=== PATIENT | female | born 1995 ===

== ENCOUNTER 2018-11-11 22:16 | Observation (INO) | payer SELFPAY ==
[2018-11-11 22:24] VITALS: BMI 24.5
[2018-11-11] MEDS ORDERED: Sodium Chloride 0.9% 1,000 ML IV STA (22:26)
[2018-11-11 22:59] LABS: BASO # 0.02 {null, K/mm3} (0.0-2.0); BASO % 0.1 % (0.0-3.0); EOS % 0.1 % (1.5-5.0); HEMOGLOBIN 13.5 g/dL (12.0-16.0); LYMPH # 1.7 (1.2-3.4); LYMPH % 10.6 % (22.0-35.0); MEAN CORPUSCULAR HEMOGLOBIN 27.4 pg (25.0-35.0); MEAN CORPUSCULAR HGB CONC 32.6 g/dl (31.0-37.0); MEAN PLATELET VOLUME 10.8 fl (7.0-11.0); MONO % 6.3 % (1.0-6.0); RBC 4.93 {null, 10^6/uL} (3.5-6.1); RED CELL DISTRIBUTION WIDTH 15.3 % (11.5-14.5); WHITE BLOOD COUNT 16.1 {null, 10^3/uL} (4.5-11.0)
[2018-11-11 23:03] LABS: INR 1.4; PARTIAL THROMBOPLASTIN TIME 32.4 Seconds (26.9-38.3); PROTHROMBIN TIME 15.5 SECONDS (9.4-12.5)
[2018-11-11 23:05] LABS: ALB/GLOB RATIO 1.2 (1.1-1.8); ALBUMIN 4.7 g/dL (3.0-4.8); ALT/SGPT 21 U/L (7-56); AST/SGOT 28 U/L (14-36); BLOOD UREA NITROGEN 12 mg/dL (7-21); CALCIUM 9.7 mg/dL (8.4-10.5); GFR NON-AFRICAN AMERICAN > 60
[2018-11-11 23:06] LABS: HCG,QUALITATIVE URINE POSITIVE (NEGATIVE); URINE APPEARANCE CLEAR (CLEAR); URINE BILIRUBIN NEGATIVE (NEGATIVE); URINE BLOOD NEGATIVE (NEGATIVE); URINE COLOR YELLOW (YELLOW); URINE GLUCOSE (UA) NEGATIVE (NEGATIVE); URINE LEUKOCYTE ESTERASE NEGATIVE Leu/uL (NEGATIVE); URINE PROTEIN 30 mg/dL (<30 mg/dL); URINE UROBILINOGEN 0.2 E.U./dL (<1 E.U./dL)
[2018-11-11 23:08] LABS: URINE EPITHELIAL CELLS 0 - 2 /hpf (0-5); URINE RBC 0 - 2 /hpf (0-2); URINE WBC 0 - 2 /hpf (0-6)
--- NOTE | 2018-11-12 00:36 | ED PDOC ---
Arrival/HPI - General Chief Complaint: GI Problem Time Seen by Provider: 11/11/18 22:20 Historian: Patient - History of Present Illness Narrative History of Present Illness (Text): 11/12/18 01:45 23 y/o A0 female 7 weeks by LMP with no significant PMH presents to the ED c/o vomiting x 1 day. Admits to 15-20 episodes of nonbilious, nonbloody emesis today. Associated intermittent lightheadedness. Abdominal pain is crampy, burning, and generalized. States she had hyperemesis syndrome with her first . LMP 09/20/18. Denies fever, chills, back pain, urinary symptoms, headache, dizziness, vaginal bleeding or discharge, syncope, or any other associated complaints. Past Medical History - Provider Review Nursing Documentation Reviewed: Yes - Infectious Disease Hx of Infectious Diseases: None - Psychiatric Hx Substance Use: No - Anesthesia Hx Anesthesia: No Family/Social History - Physician Review Nursing Documentation Reviewed: Yes Family/Social History: No Known Family HX Smoking Status: Never Smoked Hx Alcohol Use: No Hx Substance Use: No Allergies/Home Meds Allergies/Adverse Reactions: Allergies No Known Allergies Allergy (Verified 11/11/18 22:24) Review of Systems - Review of Systems Constitutional: Normal. absent: Fevers Eyes: Normal. absent: Vision Changes ENT: Normal. absent: Sore Throat, Sinus Congestion Respiratory: Normal. absent: SOB, Cough Cardiovascular: Normal. absent: Chest Pain, Palpitations Gastrointestinal: Abdominal Pain, Nausea, Vomiting Genitourinary Female: Normal. absent: Dysuria, Frequency, Vaginal Bleeding, Vaginal Discharge Musculoskeletal: Normal. absent: Back Pain, Neck Pain Skin: Normal. absent: Rash Neurological: Dizziness. absent: Headache Physical Exam Vital Signs Reviewed: Yes Vital Signs Temp Pulse Resp BP Pulse Ox 11/11/18 22:25 98 F 84 18 108/59 L 99 Temperature: Afebrile Blood Pressure: Hypotensive Pulse: Regular Respiratory Rate: Normal Appearance: Positive for: Well-Appearing, Non-Toxic, Comfortable Pain Distress: None Mental Status: Positive for: Alert and Oriented X 3 - Systems Exam Head: Present: Atraumatic, Normocephalic Pupils: Present: PERRL Extroacular Muscles: Present: EOMI Conjunctiva: Present: Normal Mouth: Present: Moist Mucous Membranes Neck: Present: Normal Range of Motion. No: Meningeal Signs, MIDLINE TENDERNESS Respiratory/Chest: Present: Clear to Auscultation, Good Air Exchange. No: Respiratory Distress, Accessory Muscle Use Cardiovascular: Present: Regular Rate and Rhythm, Normal S1, S2, Peripheal Pulses Present Abdomen: Present: Tenderness (generalized, mild), Normal Bowel Sounds, Other (NO isolated RLQ tenderness). No: Distention, Peritoneal Signs Genitourinary/Pelvic Exam: Present: Normal External Genitalia, Cervical os Closed. No: Vaginal Discharge, Vaginal Bleeding, Vaginal Lesions, Adenexal Tenderness, Cervical Motion Tendernes Back: Present: Normal Inspection. No: CVA Tenderness Upper Extremity: Present: Normal Inspection, Normal ROM, NORMAL PULSES, Neurovascularly Intact, Capillary Refill < 2s. No: Cyanosis, Edema, Temperature Abnormalties Lower Extremity: Present: Normal Inspection, NORMAL PULSES, Normal ROM, Neurovascularly Intact, Capillary Refill < 2 s. No: Edema, Temperature Abnormalties Neurological: Present: GCS=15, CN II-XII Intact, Speech Normal, Motor Func Gross ly Intact, Normal Sensory Function, Gait Normal Skin: Present: Warm, Dry, Normal Color. No: Rashes Psychiatric: Present: Alert, Oriented x 3, Normal Insight, Normal Concentration, Normal Affect, Normal Mood Medical Decision Making ED Course and Treatment: 11/12/18 01:33 Initial Plan: * CBC, CMP * Coags * Lipase * Hcg quant * Type and Screen * UA * POC preg * IVF * Pepcid * Reglan Bloodwork reviewed, remarkable for leukocytosis. Will repeat CBC after fluids. Transvaginal ultrasound shows single live IUP at 7 weeks and right ovarian cyst. Patient reports complete resolution of symptoms with medication. 11/12/18 02:02 CBC shows increased leukocytosis. Pt continues to c/o nausea. Will keep for observation. Patient accepted to hospitalist service by Dr. Murguia. Pt updated with change in disposition. Vitals stable at this time. - Lab Interpretations Lab Results: PT 15.5 SECONDS (9.4-12.5) H 11/11/18 22:45 INR 1.40 11/11/18 22:45 APTT 32.4 Seconds (26.9-38.3) 11/11/18 22:45 Total Bilirubin 0.5 mg/dL (0.2-1.3) 11/11/18 22:45 AST 28 U/L (14-36) 11/11/18 22:45 ALT 21 U/L (7-56) 11/11/18 22:45 Alkaline Phosphatase 64 U/L (38-126) 11/11/18 22:45 Total Protein 8.6 g/dL (5.8-8.3) H 11/11/18 22:45 Albumin 4.7 g/dL (3.0-4.8) 11/11/18 22:45 Globulin 3.9 gm/dL 11/11/18 22:45 Albumin/Globulin Ratio 1.2 (1.1-1.8) 11/11/18 22:45 Lipase 48 U/L (23-300) 11/11/18 22:45 Urine Color Yellow (YELLOW) 11/11/18 22:45 Urine Appearance Clear (CLEAR) 11/11/18 22:45 Urine pH 6.0 (4.7-8.0) 11/11/18 22:45 Ur Specific [place] >= 1.030 (1.005-1.035) 11/11/18 22:45 Urine Protein 30 mg/dL (<30 mg/dL) H 11/11/18 22:45 Urine Glucose (UA) Negative mg/dL (NEGATIVE) 11/11/18 22:45 Urine Ketones >=80 mg/dL (NEGATIVE) 11/11/18 22:45 Urine Blood Negative (NEGATIVE) 11/11/18 22:45 Urine Nitrate Negative (NEGATIVE) 11/11/18 22:45 Urine Bilirubin Negative (NEGATIVE) 11/11/18 22:45 Urine Urobilinogen 0.2 E.U./dL (<1 E.U./dL) 11/11/18 22:45 Ur Leukocyte Esterase Negative Radha/uL (NEGATIVE) 11/11/18 22:45 Urine RBC 0 - 2 /hpf (0-2) 11/11/18 22:45 Urine WBC 0 - 2 /hpf (0-6) 11/11/18 22:45 Ur Epithelial Cells 0 - 2 /hpf (0-5) 11/11/18 22:45 Urine Other Mucus /hpf 11/11/18 22:45 Urine HCG, Qual Positive (NEGATIVE) 11/11/18 22:45 Beta HCG, Quant 677871.00 mIU/mL (0-6.15) H 11/11/18 22:45 Urine HCG, Qual Positive (NEGATIVE) 11/11/18 22:45 11/12/18 01:05 11/11/18 22:45 Lab Results 11/12/18 01:05: WBC 16.4 H, RBC 4.38, Hgb 11.8 L, Hct 36.7, MCV 83.8, MCH 26.9, MCHC 32.2, RDW 15.1 H, Plt Count 324, MPV 10.5, Neut % (Auto) 86.9 H, Lymph % (A uto) 7.1 L, [place] % (Auto) 5.8, Eos % (Auto) 0.1 L, Baso % (Auto) 0.1, Lymph # (Auto) 1.2, [place] # (Auto) 1.0 H, Eos # (Auto) 0.0, Baso # (Auto) 0.02, Absolute Neuts (auto) 14.24 H 11/11/18 22:45: Lipase 48 11/11/18 22:45: Blood Type A POSITIVE, Antibody Screen Negative, BBK History Checked No verified bt 11/11/18 22:45: Urine Color Yellow, Urine Appearance Clear, Urine pH 6.0, Ur Specific [place] >= 1.030, Urine Protein 30 H, Urine Glucose (UA) Negative, Urine Ketones >=80, Urine Blood Negative, Urine Nitrate Negative, Urine Bilirubi n Negative, Urine Urobilinogen 0.2, Ur Leukocyte Esterase Negative, Urine RBC 0 - 2, Urine WBC 0 - 2, Ur Epithelial Cells 0 - 2, Urine Other Mucus, Urine HCG, Qual Positive 11/11/18 22:45: Beta HCG, Quant 901637.00 H 11/11/18 22:45: Sodium 138, Potassium 3.9, Chloride 99, Carbon Dioxide 26, Anion Gap 17, BUN 12, Creatinine 0.5 L, Est GFR ( Amer) > 60, Est GFR (Non-Af Amer) > 60, Random Glucose 90, Calcium 9.7, Total Bilirubin 0.5, AST 28, ALT 21, Alkaline Phosphatase 64, Total Protein 8.6 H, Albumin 4.7, Globulin 3.9, Albumin/Globulin Ratio 1.2 11/11/18 22:45: PT 15.5 H, INR 1.40, APTT 32.4 11/11/18 22:45: WBC 16.1 H, RBC 4.93, Hgb 13.5, Hct 41.4, MCV 84.0, MCH 27.4, MCHC 32.6, RDW 15.3 H, Plt Count 368, MPV 10.8, Neut % (Auto) 82.9 H, Lymph % (Auto) 10.6 L, [place] % (Auto) 6.3 H, Eos % (Auto) 0.1 L, Baso % (Auto) 0.1, Lymph # (Auto) 1.7, [place] # (Auto) 1.0 H, Eos # (Auto) 0.0, Baso # (Auto) 0.02, Absolute Neuts (auto) 13.35 H I have reviewed the lab results: Yes - RAD Interpretation Narrative RAD Interpretations (Text): Transvaginal US: GESTATION: Early single living IUP estimated to be 7 weeks and 2 days in age, +/- 4 days. cardiac rate documented at 154 BPM. UTERUS: Unremarkable. No myometrial mass. CERVIX: Closed. Unremarkable. OVARIES: A 1.4 x 1.2 x 1.5 cm complex cyst noted. No suspicious mass. FREE FLUID: No free fluid. IMPRESSION: Single living intrauterine . No acute abnormality. 1.4 x 1.2 cm complex right ovarian cyst. The EDMUND is 06/28/2019. Electronically signed on Nov 12, 2018 12:08:47 AM EDT by: Rosalba Katz M.D., Certified by ABR, MSK, Neuroradiology Radiology Orders: 11/11/18 22:29 OB TRANSVAGINAL [US] Stat Integrated Pest Management Technician: Radiologist - Medication Orders Current Medication Orders: Discontinued Medications Famotidine (Pepcid) 20 mg IVP STAT STA Stop: 11/11/18 22:28 Last Admin: 11/11/18 23:00 Dose: 20 mg IVP Administration Document 11/11/18 23:00 CNR (Rec: 11/11/18 23:00 CNR [id number]) Charges for Administration # of IVP Administrations 1 Sodium Chloride (Sodium Chloride 0.9%) 1,000 mls @ 999 mls/hr IV .Q1H1M STA Stop: 11/11/18 23:26 Last Admin: 11/11/18 22:56 Dose: 999 mls/hr eMAR Start Stop Document 11/11/18 22:56 CNR (Rec: 11/11/18 22:56 CNR [id number]) Intravenous Solution Start Date 11/11/18 Start Time 22:56 End Date 11/11/18 End time 23:56 Total Infusion Time 60 Metoclopramide HCl (Reglan) 10 mg IVP STAT STA Stop: 11/11/18 22:29 Last Admin: 11/11/18 22:55 Dose: 10 mg IVP Administration Document 11/11/18 22:55 CNR (Rec: 11/11/18 22:56 CNR [id number]) Charges for Administration # of IVP Administrations 1 Disposition/Present on Arrival - Present on Arrival Any Indicators Present on Arrival: No History of DVT/PE: No History of Uncontrolled Diabetes: No Urinary Catheter: No History of Decub. Ulcer: No History Surgical Site Infection Following: None - Disposition Have Diagnosis and Disposition been Completed?: Yes Diagnosis: Hyperemesis, Leukocytosis, Disposition: HOSPITALIZED Disposition Time: 01:58 Patient Plan: Admission Patient Problems: Current Active Problems Problem Status Onset Hyperemesis Acute Leukocytosis Acute Acute Condition: STABLE Forms: [employer] (Setswana), WORK NOTE
[2018-11-12 01:30] LABS: BASO # 0.02 {null, K/mm3} (0.0-2.0); BASO % 0.1 % (0.0-3.0); EOS % 0.1 % (1.5-5.0); HEMOGLOBIN 11.8 g/dL (12.0-16.0); LYMPH # 1.2 (1.2-3.4); LYMPH % 7.1 % (22.0-35.0); MEAN CELL VOLUME 83.8 fl (80.0-105.0); MEAN CORPUSCULAR HEMOGLOBIN 26.9 pg (25.0-35.0); MEAN CORPUSCULAR HGB CONC 32.2 g/dl (31.0-37.0); MEAN PLATELET VOLUME 10.5 fl (7.0-11.0); MONO % 5.8 % (1.0-6.0); RBC 4.38 {null, 10^6/uL} (3.5-6.1); RED CELL DISTRIBUTION WIDTH 15.1 % (11.5-14.5); WHITE BLOOD COUNT 16.4 {null, 10^3/uL} (4.5-11.0)
--- NOTE | 2018-11-12 02:30 | CP.PCM.HP ---
<Byron Riley - Last Filed: 11/12/18 03:46> History of Present Illness - History of Present Illness History of Present Illness: PGY-1 Medicine H&P for Dr. Murguia CC: Nausea and vomiting HPI: Patient is a 23 year old female at 7 weeks by LMP with a past medical history of hyperemesis gravidum presenting with vomiting for 1 day. She admits to 15-20 episodes of nonbilious, nonbloody emesis today. She also complains of abdominal pain and sore throat that she states from vomiting too many times today. She denies sick contacts at home or recent travels. Patient states that one of her coworker is sick with a cough. She denies cough, nasal congestion, or recent illness. She is currently sexually active with one partner and denies using protection. She admits to mild dysuria that she states secondary from not drinking enough water. She denies urinary frequency, hematuria, dyspareunia, malodorous urine, history of STI's, vaginal bleeding or discharge. She further denies headaches, shortness of breath, chest pain, abdominal pain, or diarrhea. Patient states that she just found out recently that she is . Patient has not seen an OB doctor yet but has an appointment next week to see one. 12-point ROS reviewed and negative, except mentioned in HPI. PMHx: Hyperemesis gravidum PSHx: 1 X Allergies: NKDA OBGYN Hx: . LMP was 09/20/18. Patient is sexually active with one partner. Does not use protection. She denies history of any STI's. Social Hx: denies tobacco alcohol, or drug use. Patient works in [employer]. Family Hx: denies. Medications: none PMD: Primary care clinic on [address] [place] [address]. 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 Present on Admission - Present on Admission Any Indicators Present on Admission: No History of DVT/PE: No History of Uncontrolled Diabetes: No Urinary Catheter: No Decubitus Ulcer Present: No Past Patient History - Infectious Disease Hx of Infectious Diseases: None - Past Social History Smoking Status: Never Smoked - PSYCHIATRIC Hx Substance Use: No - SURGICAL HISTORY Hx Surgeries: No - ANESTHESIA Hx Anesthesia: No Meds Allergies/Adverse Reactions: Allergies Allergy/AdvReac Type Severity Reaction Status Date / Time No Known Allergies Allergy Verified 11/11/18 22:24 Physical Exam - Constitutional Appears: Well, Non-toxic, No Acute Distress - Head Exam Head Exam: ATRAUMATIC, NORMAL INSPECTION - Eye Exam Eye Exam: EOMI, Normal appearance Pupil Exam: NORMAL ACCOMODATION - ENT Exam ENT Exam: Mucous Membranes Dry - Neck Exam Neck exam: Positive for: Normal Inspection - Respiratory Exam Respiratory Exam: Clear to Auscultation Bilateral, NORMAL BREATHING PATTERN. absent: Rales, Rhonchi, Wheezes, Respiratory Distress - Cardiovascular Exam Cardiovascular Exam: REGULAR RHYTHM, +S1, +S2. absent: Bradycardia, Tachycardia, Gallop, Rubs, Systolic Murmur - GI/Abdominal Exam GI & Abdominal Exam: Normal Bowel Sounds, Soft. absent: Distended, Firm, Guarding, Tenderness - Extremities Exam Extremities exam: Positive for: normal inspection. Negative for: calf ten derness, pedal edema - Back Exam Back exam: NORMAL INSPECTION. absent: CVA tenderness (L), CVA tenderness (R), paraspinal tenderness, rash noted, vertebral tenderness - Neurological Exam Neurological exam: Alert, CN II-XII Intact, Oriented x3 - Psychiatric Exam Psychiatric exam: Normal Affect, Normal Mood - Skin Skin Exam: Dry, Intact, Normal Color, Warm Results - Vital Signs Recent Vital Signs: Last Vital Signs Temp 98 F 11/11/18 22:25 Pulse 84 11/11/18 22:25 Resp 18 11/11/18 22:25 BP 108/59 L 11/11/18 22:25 Pulse Ox 99 11/11/18 22:25 - Labs Result Diagrams: 11/12/18 01:05 11/11/18 22:45 Labs: Laboratory Results - last 24 hr 11/11/18 11/11/18 11/11/18 22:45 22:45 22:45 WBC 16.1 H RBC 4.93 Hgb 13.5 Hct 41.4 MCV 84.0 MCH 27.4 MCHC 32.6 RDW 15.3 H Plt Count 368 MPV 10.8 Neut % (Auto) 82.9 H Lymph % (Auto) 10.6 L [place] % (Auto) 6.3 H Eos % (Auto) 0.1 L Baso % (Auto) 0.1 Lymph # (Auto) 1.7 [place] # (Auto) 1.0 H Eos # (Auto) 0.0 Baso # (Auto) 0.02 Absolute Neuts (auto) 13.35 H PT 15.5 H INR 1.40 APTT 32.4 Sodium 138 Potassium 3.9 Chloride 99 Carbon Dioxide 26 Anion Gap 17 BUN 12 Creatinine 0.5 L Est GFR ( Amer) > 60 Est GFR (Non-Af Amer) > 60 Random Glucose 90 Calcium 9.7 Total Bilirubin 0.5 AST 28 ALT 21 Alkaline Phosphatase 64 Total Protein 8.6 H Albumin 4.7 Globulin 3.9 Albumin/Globulin Ratio 1.2 Lipase Beta HCG, Quant Urine Color Urine Appearance Urine pH Ur Specific [place] Urine Protein Urine Glucose (UA) Urine Ketones Urine Blood Urine Nitrate Urine Bilirubin Urine Urobilinogen Ur Leukocyte Esterase Urine RBC Urine WBC Ur Epithelial Cells Urine Other Urine HCG, Qual Blood Type Antibody Screen BBK History Checked 11/11/18 11/11/18 11/11/18 22:45 22:45 22:45 WBC RBC Hgb Hct MCV MCH MCHC RDW Plt Count MPV Neut % (Auto) Lymph % (Auto) [place] % (Auto) Eos % (Auto) Baso % (Auto) Lymph # (Auto) [place] # (Auto) Eos # (Auto) Baso # (Auto) Absolute Neuts (auto) PT INR APTT Sodium Potassium Chloride Carbon Dioxide Anion Gap BUN Creatinine Est GFR ( Amer) Est GFR (Non-Af Amer) Random Glucose Calcium Total Bilirubin AST ALT Alkaline Phosphatase Total Protein Albumin Globulin Albumin/Globulin Ratio Lipase Beta HCG, Quant 562803.00 H Urine Color Yellow Urine Appearance Clear Urine pH 6.0 Ur Specific [place] >= 1.030 Urine Protein 30 H Urine Glucose (UA) Negative Urine Ketones >=80 Urine Blood Negative Urine Nitrate Negative Urine Bilirubin Negative Urine Urobilinogen 0.2 Ur Leukocyte Esterase Negative Urine RBC 0 - 2 Urine WBC 0 - 2 Ur Epithelial Cells 0 - 2 Urine Other Mucus Urine HCG, Qual Positive Blood Type A POSITIVE Antibody Screen Negative BBK History Checked No verified bt 11/11/18 11/12/18 22:45 01:05 WBC 16.4 H RBC 4.38 Hgb 11.8 L Hct 36.7 MCV 83.8 MCH 26.9 MCHC 32.2 RDW 15.1 H Plt Count 324 MPV 10.5 Neut % (Auto) 86.9 H Lymph % (Auto) 7.1 L [place] % (Auto) 5.8 Eos % (Auto) 0.1 L Baso % (Auto) 0.1 Lymph # (Auto) 1.2 [place] # (Auto) 1.0 H Eos # (Auto) 0.0 Baso # (Auto) 0.02 Absolute Neuts (auto) 14.24 H PT INR APTT Sodium Potassium Chloride Carbon Dioxide Anion Gap BUN Creatinine Est GFR ( Amer) Est GFR (Non-Af Amer) Random Glucose Calcium Total Bilirubin AST ALT Alkaline Phosphatase Total Protein Albumin Globulin Albumin/Globulin Ratio Lipase 48 Beta HCG, Quant Urine Color Urine Appearance Urine pH Ur Specific [place] Urine Protein Urine Glucose (UA) Urine Ketones Urine Blood Urine Nitrate Urine Bilirubin Urine Urobilinogen Ur Leukocyte Esterase Urine RBC Urine WBC Ur Epithelial Cells Urine Other Urine HCG, Qual Blood Type Antibody Screen BBK History Checked Assessment & Plan - Assessment and Plan (Free Text) Assessment: Patient is a 23 year old female at 7 weeks by LMP with a past medical history of hyperemesis gravidum presenting with vomiting for 1 day. Patient was found to have leukocytosis. Plan: Leukocytosis - Patient is afebrile - Transvaginal ultrasound shows single live IUP at 7 weeks and right ovarian cyst - UA: negative for nitrates, LE, WBC, bacteria - Follow up CBC, procalcitonin - Urine cultures ordered Hyperemesis gravidum, resolved - Reglan 10mg IVP Q6 PRN - NS @100 mL/hr Prophylaxis: - DVT: SCD's - GI: not indicated Case discussed with attending, Dr. Murguia. Byron Riley, PGY-1 <Abbe Murguia - Last Filed: 11/12/18 06:14> Results - Vital Signs Recent Vital Signs: Last Vital Signs Temp 98.5 F 11/12/18 04:08 Pulse 73 11/12/18 04:08 Resp 20 11/12/18 04:08 BP 98/59 L 11/12/18 04:08 Pulse Ox 100 11/12/18 04:08 - Labs Result Diagrams: 11/12/18 01:05 11/11/18 22:45 Labs: Laboratory Results - last 24 hr 11/11/18 11/11/18 11/11/18 22:45 22:45 22:45 WBC 16.1 H RBC 4.93 Hgb 13.5 Hct 41.4 MCV 84.0 MCH 27.4 MCHC 32.6 RDW 15.3 H Plt Count 368 MPV 10.8 Neut % (Auto) 82.9 H Lymph % (Auto) 10.6 L [place] % (Auto) 6.3 H Eos % (Auto) 0.1 L Baso % (Auto) 0.1 Lymph # (Auto) 1.7 [place] # (Auto) 1.0 H Eos # (Auto) 0.0 Baso # (Auto) 0.02 Absolute Neuts (auto) 13.35 H PT 15.5 H INR 1.40 APTT 32.4 Sodium 138 Potassium 3.9 Chloride 99 Carbon Dioxide 26 Anion Gap 17 BUN 12 Creatinine 0.5 L Est GFR ( Amer) > 60 Est GFR (Non-Af Amer) > 60 Random Glucose 90 Calcium 9.7 Total Bilirubin 0.5 AST 28 ALT 21 Alkaline Phosphatase 64 Total Protein 8.6 H Albumin 4.7 Globulin 3.9 Albumin/Globulin Ratio 1.2 Lipase Beta HCG, Quant Urine Color Urine Appearance Urine pH Ur Specific [place] Urine Protein Urine Glucose (UA) Urine Ketones Urine Blood Urine Nitrate Urine Bilirubin Urine Urobilinogen Ur Leukocyte Esterase Urine RBC Urine WBC Ur Epithelial Cells Urine Other Urine HCG, Qual Blood Type Antibody Screen BBK History Checked 11/11/18 11/11/18 11/11/18 22:45 22:45 22:45 WBC RBC Hgb Hct MCV MCH MCHC RDW Plt Count MPV Neut % (Auto) Lymph % (Auto) [place] % (Auto) Eos % (Auto) Baso % (Auto) Lymph # (Auto) [place] # (Auto) Eos # (Auto) Baso # (Auto) Absolute Neuts (auto) PT INR APTT Sodium Potassium Chloride Carbon Dioxide Anion Gap BUN Creatinine Est GFR ( Amer) Est GFR (Non-Af Amer) Random Glucose Calcium Total Bilirubin AST ALT Alkaline Phosphatase Total Protein Albumin Globulin Albumin/Globulin Ratio Lipase Beta HCG, Quant 959526.00 H Urine Color Yellow Urine Appearance Clear Urine pH 6.0 Ur Specific [place] >= 1.030 Urine Protein 30 H Urine Glucose (UA) Negative Urine Ketones >=80 Urine Blood Negative Urine Nitrate Negative Urine Bilirubin Negative Urine Urobilinogen 0.2 Ur Leukocyte Esterase Negative Urine RBC 0 - 2 Urine WBC 0 - 2 Ur Epithelial Cells 0 - 2 Urine Other Mucus Urine HCG, Qual Positive Blood Type A POSITIVE Antibody Screen Negative BBK History Checked No verified bt 11/11/18 11/12/18 22:45 01:05 WBC 16.4 H RBC 4.38 Hgb 11.8 L Hct 36.7 MCV 83.8 MCH 26.9 MCHC 32.2 RDW 15.1 H Plt Count 324 MPV 10.5 Neut % (Auto) 86.9 H Lymph % (Auto) 7.1 L [place] % (Auto) 5.8 Eos % (Auto) 0.1 L Baso % (Auto) 0.1 Lymph # (Auto) 1.2 [place] # (Auto) 1.0 H Eos # (Auto) 0.0 Baso # (Auto) 0.02 Absolute Neuts (auto) 14.24 H PT INR APTT Sodium Potassium Chloride Carbon Dioxide Anion Gap BUN Creatinine Est GFR ( Amer) Est GFR (Non-Af Amer) Random Glucose Calcium Total Bilirubin AST ALT Alkaline Phosphatase Total Protein Albumin Globulin Albumin/Globulin Ratio Lipase 48 Beta HCG, Quant Urine Color Urine Appearance Urine pH Ur Specific [place] Urine Protein Urine Glucose (UA) Urine Ketones Urine Blood Urine Nitrate Urine Bilirubin Urine Urobilinogen Ur Leukocyte Esterase Urine RBC Urine WBC Ur Epithelial Cells Urine Other Urine HCG, Qual Blood Type Antibody Screen BBK History Checked Attending/Attestation - Attestation I have personally seen and examined this patient.: Yes I have fully participated in the care of the patient.: Yes I have reviewed all pertinent clinical information: Yes Notes (Text): 11/12/18 06:14 Patient was seen when she was in the ER . Medical record was reviewed. Agree with history , physical examination, assessment and plan.
[2018-11-12] MEDS ORDERED: Sodium Chloride 0.9% 1,000 ML IV SCH (03:30)
[2018-11-12] MEDS ORDERED: Pneumococcal 23-Valent Vaccine IM ONE (03:36)
[2018-11-12 04:08] VITALS: O2SAT 100
[2018-11-12 07:59] LABS: BASO # 0.02 {null, K/mm3} (0.0-2.0); BASO % 0.1 % (0.0-3.0); EOS % 0.1 % (1.5-5.0); LYMPH # 1.9 (1.2-3.4); LYMPH % 13.7 % (22.0-35.0); MEAN CELL VOLUME 84.2 fl (80.0-105.0); MEAN CORPUSCULAR HEMOGLOBIN 26.4 pg (25.0-35.0); MEAN CORPUSCULAR HGB CONC 31.3 g/dl (31.0-37.0); MEAN PLATELET VOLUME 10.8 fl (7.0-11.0); MONO # 1.2 (0.1-0.6); MONO % 8.4 % (1.0-6.0); RBC 4.17 {null, 10^6/uL} (3.5-6.1); RED CELL DISTRIBUTION WIDTH 15.3 % (11.5-14.5); WHITE BLOOD COUNT 14.1 {null, 10^3/uL} (4.5-11.0)
[2018-11-12 08:25] VITALS: BP 103/66; PULSE 100; RESP 18; TEMP 98.2
[2018-11-12 08:30] LABS: ALB/GLOB RATIO 1.2 (1.1-1.8); ALBUMIN 3.6 g/dL (3.0-4.8); ALT/SGPT 22 U/L (7-56); AST/SGOT 19 U/L (14-36); BLOOD UREA NITROGEN 9 mg/dL (7-21); CALCIUM 8.6 mg/dL (8.4-10.5); GFR NON-AFRICAN AMERICAN > 60
--- NOTE | 2018-11-12 11:55 | US ---
Date of service: 11/11/2018 PROCEDURE: OB Pelvic Ultrasound HISTORY: OB, abd pain, LMP 09/20 LMP: 09/20/2018 COMPARISON: None available. FINDINGS: UTERUS: Gestational sac: Single intrauterine gestation. Mean sac diameter measures 2.6 cm compatible with estimated gestational age of 7 weeks, 2 days Yolk sac: Measures 0.3 cm pole: [place]-rump length measures 1.2 cm compatible with estimated gestational age of 7 weeks, 2 days Heart rate: 154 bpm. age (Ultrasound estimated): 7 weeks, 2 days Kate-gestational hemorrhage: None. Date of delivery (Ultrasound estimated) : 06/28/2019 CERVIX: Measures 3.6 cm. Long and closed. No cervical abnormality seen. RIGHT OVARY: Measures 3.5 x 2.1 x 3.3 cm. 1.4 x 1.2 x 1.5 cm corpus luteum. Normal flow. LEFT OVARY: Measures 3.2 x 1.7 x 2.5 cm. No solid mass. Normal flow. FREE FLUID: None. OTHER FINDINGS: None. IMPRESSION: Single live intrauterine gestation with average ultrasound age of 7 weeks, 2 days. heart rate 154 beats per minute. Cervix long closed.
--- NOTE | 2018-11-12 15:29 | CP.PCM.DIS ---
<Jace Jones - Last Filed: 11/12/18 18:40> Provider - Provider Date of Admission: 11/12/18 02:04 Attending physician: Teressa Simmons MD Time Spent in preparation of Discharge (in minutes): 45 Diagnosis - Discharge Diagnosis (1) Hyperemesis Status: Acute (2) Leukocytosis Status: Acute (3) Status: Acute Hospital Course - Lab Results Lab Results: Most Recent Lab Values WBC 14.1 10^3/uL (4.5-11.0) H 11/12/18 07:00 RBC 4.17 10^6/uL (3.5-6.1) 11/12/18 07:00 Hgb 11.0 g/dL (12.0-16.0) L 11/12/18 07:00 Hct 35.1 % (36.0-48.0) L 11/12/18 07:00 MCV 84.2 fl (80.0-105.0) 11/12/18 07:00 MCH 26.4 pg (25.0-35.0) 11/12/18 07:00 MCHC 31.3 g/dl (31.0-37.0) 11/12/18 07:00 RDW 15.3 % (11.5-14.5) H 11/12/18 07:00 Plt Count 308 10^3/uL (120.0-450.0) 11/12/18 07:00 MPV 10.8 fl (7.0-11.0) 11/12/18 07:00 Neut % (Auto) 77.7 % (50.0-68.0) H 11/12/18 07:00 Lymph % (Auto) 13.7 % (22.0-35.0) L 11/12/18 07:00 [place] % (Auto) 8.4 % (1.0-6.0) H 11/12/18 07:00 Eos % (Auto) 0.1 % (1.5-5.0) L 11/12/18 07:00 Baso % (Auto) 0.1 % (0.0-3.0) 11/12/18 07:00 Lymph # (Auto) 1.9 (1.2-3.4) 11/12/18 07:00 [place] # (Auto) 1.2 (0.1-0.6) H 11/12/18 07:00 Eos # (Auto) 0.0 (0.0-0.7) 11/12/18 07:00 Baso # (Auto) 0.02 K/mm3 (0.0-2.0) 11/12/18 07:00 Absolute Neuts (auto) 10.97 (1.4-6.5) H 11/12/18 07:00 PT 15.5 SECONDS (9.4-12.5) H 11/11/18 22:45 INR 1.40 11/11/18 22:45 APTT 32.4 Seconds (26.9-38.3) 11/11/18 22:45 Sodium 137 mmol/L (132-148) 11/12/18 07:00 Potassium 3.6 mmol/L (3.6-5.0) 11/12/18 07:00 Chloride 105 mmol/L (98-107) 11/12/18 07:00 Carbon Dioxide 21 mmol/L (21-33) 11/12/18 07:00 Anion Gap 15 (10-20) 11/12/18 07:00 BUN 9 mg/dL (7-21) 11/12/18 07:00 Creatinine 0.5 mg/dl (0.7-1.2) L 11/12/18 07:00 Est GFR ( Amer) > 60 11/12/18 07:00 Est GFR (Non-Af Amer) > 60 11/12/18 07:00 Random Glucose 66 mg/dL (70-110) L 11/12/18 07:00 Calcium 8.6 mg/dL (8.4-10.5) 11/12/18 07:00 Phosphorus 4.1 mg/dL (2.5-4.5) 11/12/18 07:00 Magnesium 1.8 mg/dL (1.7-2.2) 11/12/18 07:00 Total Bilirubin 0.4 mg/dL (0.2-1.3) 11/12/18 07:00 AST 19 U/L (14-36) 11/12/18 07:00 ALT 22 U/L (7-56) 11/12/18 07:00 Alkaline Phosphatase 51 U/L (38-126) 11/12/18 07:00 Total Protein 6.7 g/dL (5.8-8.3) 11/12/18 07:00 Albumin 3.6 g/dL (3.0-4.8) 11/12/18 07:00 Globulin 3.1 gm/dL 11/12/18 07:00 Albumin/Globulin Ratio 1.2 (1.1-1.8) 11/12/18 07:00 Lipase 48 U/L (23-300) 11/11/18 22:45 Beta HCG, Quant 245100.00 mIU/mL (0-6.15) H 11/11/18 22:45 Urine Color Yellow (YELLOW) 11/11/18 22:45 Urine Appearance Clear (CLEAR) 11/11/18 22:45 Urine pH 6.0 (4.7-8.0) 11/11/18 22:45 Ur Specific [place] >= 1.030 (1.005-1.035) 11/11/18 22:45 Urine Protein 30 mg/dL (<30 mg/dL) H 11/11/18 22:45 Urine Glucose (UA) Negative mg/dL (NEGATIVE) 11/11/18 22:45 Urine Ketones >=80 mg/dL (NEGATIVE) 11/11/18 22:45 Urine Blood Negative (NEGATIVE) 11/11/18 22:45 Urine Nitrate Negative (NEGATIVE) 11/11/18 22:45 Urine Bilirubin Negative (NEGATIVE) 11/11/18 22:45 Urine Urobilinogen 0.2 E.U./dL (<1 E.U./dL) 11/11/18 22:45 Ur Leukocyte Esterase Negative Radha/uL (NEGATIVE) 11/11/18 22:45 Urine RBC 0 - 2 /hpf (0-2) 11/11/18 22:45 Urine WBC 0 - 2 /hpf (0-6) 11/11/18 22:45 Ur Epithelial Cells 0 - 2 /hpf (0-5) 11/11/18 22:45 Urine Other Mucus /hpf 11/11/18 22:45 Urine HCG, Qual Positive (NEGATIVE) 11/11/18 22:45 Blood Type A POSITIVE 11/11/18 22:45 Blood Type Confirm A POSITIVE 11/11/18 02:00 Antibody Screen Negative 11/11/18 22:45 BBK History Checked No verified bt 11/11/18 22:45 - Hospital Course Hospital Course: Jaceleatha Jones PGY1 - 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 Upon presentation to ED patient was noted to have a mild leukocytosis w/o any CMP abnormality. TVUS performed in ED, IMPRESSION: Single live intrauterine gestation with average ultrasound age of 7 weeks, 2 days. heart rate 154 beats per minute. Cervix long closed. Patient was admitted for hyperemesis gravidum. Patient was monitored overnight and was afebrile throughout hospitalization; UA performed showed no sign of UTI; Repeat CBC morning prior to discharge showed improvement of leukocytosis. Patient was started on reglan, IVF, and given diet. Patient was seen and examined morning prior to discharge; no acute events reported overnight No complaints of nausea/vomiting reported during evaluation; patient had not required PRN reglan during hospitalization. Denies any fevers, chills, chest pain, sob, abd pain, n/v/d/c. Tolerated diet well w/o any complaint. She reported she follows w/ [facility]. Patient given follow up instructions and discharge plan in taiwanese; Agreed to follow up plans/instruction. Patient was seen, examined, discussed w/ attending Dr. Simmons prior to discharge. - Date & Time of H&P Date of H&P: 11/12/18 Time of H&P: 02:30 Discharge Exam - Head Exam Head Exam: ATRAUMATIC, NORMAL INSPECTION - Eye Exam Eye Exam: EOMI, Normal appearance, PERRL - Respiratory Exam Respiratory Exam: Clear to PA & Lateral, UNREMARKABLE - Cardiovascular Exam Cardiovascular Exam: RRR. absent: Systolic Murmur - GI/Abdominal Exam GI & Abdominal Exam: Normal Bowel Sounds, Soft. absent: Tenderness - Back Exam Back exam: absent: CVA tenderness (L), CVA tenderness (R) - Neurological Exam Neurological exam: Alert, CN II-XII Intact, Normal Gait, Oriented x3 - Psychiatric Exam Psychiatric exam: Normal Affect, Normal Mood - Skin Skin Exam: Dry, Intact, Normal Color, Warm Discharge Plan - Follow Up Plan Condition: STABLE Disposition: HOME/ ROUTINE Instructions: Hyperemesis Tristaidarum, Nausea and Vomiting of (DC) Additional Instructions: Por favor, maria m un seguimiento con rivera obstetra y gineclogo en la [facility] dentro de los 3-5 ahumada posteriores al pam. Por favor asegrese de hidratarse adecuadamente Evite los estimulantes que pueden empeorar rivera vmito. Por favor contine tomando todos los medicamentos azra se prescribi anteriormente. Si experimenta un empeoramiento de brooks sntomas, o si surgen nuevos sntomas relacionados, dirjase al servicio de urgencias ms cercano inmediatamente. Please follow up with your OBGYN at [facility] within 3-5 days of discharge Please be sure to adequately hydrate yourself Avoid stimulants which may make your vomiting worse Please continue taking all medications as previously prescribed If you experience worsening of your symptoms, or new concerning symptoms arise please go to the nearest emergency department immediately Referrals: [facility] [Outside] <Teressa Simmons - Last Filed: 11/13/18 07:29> Provider - Provider Date of Admission: 11/12/18 02:04 Attending physician: Teressa Simmons MD Hospital Course - Lab Results Lab Results: Most Recent Lab Values WBC 14.1 10^3/uL (4.5-11.0) H 11/12/18 07:00 RBC 4.17 10^6/uL (3.5-6.1) 11/12/18 07:00 Hgb 11.0 g/dL (12.0-16.0) L 11/12/18 07:00 Hct 35.1 % (36.0-48.0) L 11/12/18 07:00 MCV 84.2 fl (80.0-105.0) 11/12/18 07:00 MCH 26.4 pg (25.0-35.0) 11/12/18 07:00 MCHC 31.3 g/dl (31.0-37.0) 11/12/18 07:00 RDW 15.3 % (11.5-14.5) H 11/12/18 07:00 Plt Count 308 10^3/uL (120.0-450.0) 11/12/18 07:00 MPV 10.8 fl (7.0-11.0) 11/12/18 07:00 Neut % (Auto) 77.7 % (50.0-68.0) H 11/12/18 07:00 Lymph % (Auto) 13.7 % (22.0-35.0) L 11/12/18 07:00 [place] % (Auto) 8.4 % (1.0-6.0) H 11/12/18 07:00 Eos % (Auto) 0.1 % (1.5-5.0) L 11/12/18 07:00 Baso % (Auto) 0.1 % (0.0-3.0) 11/12/18 07:00 Lymph # (Auto) 1.9 (1.2-3.4) 11/12/18 07:00 [place] # (Auto) 1.2 (0.1-0.6) H 11/12/18 07:00 Eos # (Auto) 0.0 (0.0-0.7) 11/12/18 07:00 Baso # (Auto) 0.02 K/mm3 (0.0-2.0) 11/12/18 07:00 Absolute Neuts (auto) 10.97 (1.4-6.5) H 11/12/18 07:00 PT 15.5 SECONDS (9.4-12.5) H 11/11/18 22:45 INR 1.40 11/11/18 22:45 APTT 32.4 Seconds (26.9-38.3) 11/11/18 22:45 Sodium 137 mmol/L (132-148) 11/12/18 07:00 Potassium 3.6 mmol/L (3.6-5.0) 11/12/18 07:00 Chloride 105 mmol/L (98-107) 11/12/18 07:00 Carbon Dioxide 21 mmol/L (21-33) 11/12/18 07:00 Anion Gap 15 (10-20) 11/12/18 07:00 BUN 9 mg/dL (7-21) 11/12/18 07:00 Creatinine 0.5 mg/dl (0.7-1.2) L 11/12/18 07:00 Est GFR ( Amer) > 60 11/12/18 07:00 Est GFR (Non-Af Amer) > 60 11/12/18 07:00 Random Glucose 66 mg/dL (70-110) L 11/12/18 07:00 Calcium 8.6 mg/dL (8.4-10.5) 11/12/18 07:00 Phosphorus 4.1 mg/dL (2.5-4.5) 11/12/18 07:00 Magnesium 1.8 mg/dL (1.7-2.2) 11/12/18 07:00 Total Bilirubin 0.4 mg/dL (0.2-1.3) 11/12/18 07:00 AST 19 U/L (14-36) 11/12/18 07:00 ALT 22 U/L (7-56) 11/12/18 07:00 Alkaline Phosphatase 51 U/L (38-126) 11/12/18 07:00 Total Protein 6.7 g/dL (5.8-8.3) 11/12/18 07:00 Albumin 3.6 g/dL (3.0-4.8) 11/12/18 07:00 Globulin 3.1 gm/dL 11/12/18 07:00 Albumin/Globulin Ratio 1.2 (1.1-1.8) 11/12/18 07:00 Lipase 48 U/L (23-300) 11/11/18 22:45 Procalcitonin < 0.05 NG/ML (0.19-0.49) L 11/12/18 07:00 Beta HCG, Quant 822382.00 mIU/mL (0-6.15) H 11/11/18 22:45 Urine Color Yellow (YELLOW) 11/11/18 22:45 Urine Appearance Clear (CLEAR) 11/11/18 22:45 Urine pH 6.0 (4.7-8.0) 11/11/18 22:45 Ur Specific [place] >= 1.030 (1.005-1.035) 11/11/18 22:45 Urine Protein 30 mg/dL (<30 mg/dL) H 11/11/18 22:45 Urine Glucose (UA) Negative mg/dL (NEGATIVE) 11/11/18 22:45 Urine Ketones >=80 mg/dL (NEGATIVE) 11/11/18 22:45 Urine Blood Negative (NEGATIVE) 11/11/18 22:45 Urine Nitrate Negative (NEGATIVE) 11/11/18 22:45 Urine Bilirubin Negative (NEGATIVE) 11/11/18 22:45 Urine Urobilinogen 0.2 E.U./dL (<1 E.U./dL) 11/11/18 22:45 Ur Leukocyte Esterase Negative Radha/uL (NEGATIVE) 11/11/18 22:45 Urine RBC 0 - 2 /hpf (0-2) 11/11/18 22:45 Urine WBC 0 - 2 /hpf (0-6) 11/11/18 22:45 Ur Epithelial Cells 0 - 2 /hpf (0-5) 11/11/18 22:45 Urine Other Mucus /hpf 11/11/18 22:45 Urine HCG, Qual Positive (NEGATIVE) 11/11/18 22:45 Blood Type A POSITIVE 11/11/18 22:45 Blood Type Confirm A POSITIVE 11/11/18 02:00 Antibody Screen Negative 11/11/18 22:45 BBK History Checked No verified bt 11/11/18 22:45 Attending/Attestation - Attestation I have personally seen and examined this patient.: Yes I have fully participated in the care of the patient.: Yes I have reviewed all pertinent clinical information, including history, physical exam and plan: Yes Notes (Text): 11/12/18 23 year old female 7 weeks with past medical history of hyperemesis gravidum who presented with complaint of nausea and vomiting. She was found to have leukocytosis, likely reactive, which improved. Transvaginal ultrasound was reviewed as above. She was admitted for observation. The following day her symptoms improved and she was tolerating diet without complaints. Patient is discharged home to follow up with pmd and electrical instrument technician. Teressa Simmons MD Hospitalist.
== END 2018-11-12 19:56 | disposition home or self-care (01) ==
LOC: ED 22:16 → ERH 11-12 02:04 → MERGE 11-12 02:04 → ERH 11-12 02:16 → 3RNO 11-12 03:22
PROVIDERS: ADMIT Internal Medicine; ATTEND Internal Medicine
DX: O21.0 Mild hyperemesis gravidarum (principal); O34.81 Maternal care for other abnormalities of pelvic organs, first trimester; N83.291 Other ovarian cyst, right side; O99.111 Other diseases of the blood and blood-forming organs and certain disorders involving the immune mechanism complicating pregnancy, first trimester; D72.829 Elevated white blood cell count, unspecified; Z3A.01 Less than 8 weeks gestation of pregnancy
CPT/HCPCS: 36415; 76817; 80053; 81001; 81025; 83690; 83735; 84100; 84145; 84702; 84703; 85025; 85610; 85730; 86850; 86900; 96361; 96374; 96375; 99285; G0378; J2765; J7030